=== PATIENT | male | born 1965 | race Caucasian/White ===

== ENCOUNTER 2020-11-14 11:57 | Emergency (ER) | payer OTHER ==
[~2020-11-14] VITALS: Ht 185.4 cm; Wt 158.0 kg
--- NOTE | 2020-11-14 12:13 | NUR ---
X-RAY TECH AT BEDSIDE.
[2020-11-14 12:35] LABS: BASOPHILS % (AUTO) 1 % (0-1); EOSINOPHILS % (AUTO) 1 % (1-7); LYMPHOCYTES % (AUTO) 38 % (22-44); MEAN CORPUSCULAR HEMOGLOBIN 30.4 pg (27.5-34.5); MEAN CORPUSCULAR HGB CONC 34.1 g/dL (33.2-36.2); MEAN PLATELET VOLUME 7.8 fL (7.4-10.4); MONOCYTES % (AUTO) 10 % (2-9); NEUTROPHILS % (AUTO) 50 % (42-75); PLATELET COUNT 254 x10^3/uL (130-400); RED BLOOD COUNT 5.39 x10^6/uL (4.38-5.82)
--- NOTE | 2020-11-14 12:37 | NUR ---
PATIENT STRAIGHT BACK FROM LOBBY WITH CHIEF C/O POSSIBLE BLOOD CLOT. PER PATIENT HIS LEFT LEG HAS BEEN SWOLLEN FOR 2 WEEKS, DENIES SOB OR CHEST PAIN. PT REPORTS BP HAS ALSO BEEN HIGH. PATIENT ACCOMPANIED BY TWO GUARDS. PATIENT CONNECTED TO MONITOR, 2 GUARDS AT BEDSIDE, CALL LIGHT WITHIN REACH.
[2020-11-14 12:44] LABS: ALBUMIN 3.8 g/dL (3.4-5.0); ANION GAP 9 mmol/L (5-15); CALCIUM 9.1 mg/dL (8.5-10.1); CHLORIDE 107 mmol/L (98-107)
[2020-11-14 12:48] LABS: ALANINE AMINOTRANSFERASE 52 U/L (12-78); ALKALINE PHOSPHATASE 56 U/L (45-117); BILIRUBIN,TOTAL 0.9 mg/dL (0.2-1.0); CREATININE 0.84 mg/dL (0.7-1.3); TOTAL PROTEIN 8.6 g/dL (6.4-8.2)
--- NOTE | 2020-11-14 12:50 | NUR ---
ULTRASOUND AT BEDSIDE.
[2020-11-14 13:45] VITALS: BP 172/105
--- NOTE | 2020-11-14 14:01 | NUR ---
Patient given discharge instructions and prescriptions and they have confirmed that they understand the instructions. Patient ambulatory with steady gait in custody of guards. NAD, all questions answered appropriately, denies additional needs at this time. No personal belongings left in room after discharge.
== END 2020-11-14 14:02 | disposition home or self-care (01) ==
LOC: ED 13:55
DX: M79.662 Pain in left lower leg (principal); R60.0 Localized edema; I10 Essential (primary) hypertension; M71.22 Synovial cyst of popliteal space [Baker], left knee
CPT/HCPCS: 36415; 71045; 80053; 85025; 93005; 99285